=== PATIENT | male | born 1935 | race Caucasian/White ===

== ENCOUNTER → 2016-11-01 | Outpatient (CLI) | payer OTHER ==
[~2016-11-01] VITALS: Ht 182.9 cm; Wt 79.1 kg
[~2016-11-01] MED LIST: ASPIR 8181 M1 PO; GLUCOPHAGE500 MG PO; LIPITOR40 MG PO; PRINIVIL10 MG PO
[2016-11-01 12:45] LABS: POINT-OF-CARE METER ID UU14107333
[2016-11-01 15:29] LABS: POINT-OF-CARE METER ID UU13113819
== END | disposition home or self-care (01) ==
LOC: AMB 11:40
PROVIDERS: Internal Medicine Gastroenterology
PROC: 0DB38ZX Excision of Lower Esophagus, Via Natural or Artificial Opening Endoscopic, Diagnostic (ICD-10-PCS; principal; 2016-11-01)
DX: C15.5 Malignant neoplasm of lower third of esophagus (principal); R63.4 Abnormal weight loss; K21.9 Gastro-esophageal reflux disease without esophagitis; I25.2 Old myocardial infarction; Z87.891 Personal history of nicotine dependence; E11.9 Type 2 diabetes mellitus without complications; Z79.84 Long term (current) use of oral hypoglycemic drugs
CPT/HCPCS: 82948; 88305

== ENCOUNTER → 2016-11-15 | Outpatient (CLI) | payer OTHER ==
[~2016-11-15] VITALS: Ht 182.9 cm; Wt 74.5 kg
[~2016-11-15] MED LIST changes: +ATORVASTATIN CA20 MG PO; +LISINOPRIL10 MG PO
== END | disposition home or self-care (01) ==
LOC: AMB 07:49
PROC: 0D758DZ Dilation of Esophagus with Intraluminal Device, Via Natural or Artificial Opening Endoscopic (ICD-10-PCS; principal; 2016-11-15)
DX: C15.5 Malignant neoplasm of lower third of esophagus (principal); I10 Essential (primary) hypertension; I25.2 Old myocardial infarction; R63.4 Abnormal weight loss; Z87.891 Personal history of nicotine dependence
CPT/HCPCS: 74360; C1757; J0330; J1100; J2405; J3010

== ENCOUNTER → 2017-05-31 | Outpatient (CLI) | payer OTHER ==
[~2017-05-31] VITALS: Ht 182.9 cm; Wt 71.0 kg
[~2017-05-31] MED LIST changes: +CLARITIN10 M3 PO; +COLACE100 MG PO; +COMPAZINE10 MG PO; +DIAZEPAM5 MG PO; +FOLTX TABLET1 EAC1 PO; +GAS-X125 MG PO; +IRON325 M1 PO; +K-DUR20 MEQ PO; +MELATONIN5 M1 PO; +ONDANSETRON HCL8 MG PO; +OSTERA TABLET1 EACH PO; +PREDNISONE2.5 MG PO; +TRAMADOL HCL50 MG PO; +TYLENOL EXTRA500 MG PO
[2017-05-31 17:49] VITALS: BP 127/59
[2017-05-31 20:41] LABS: CHLORIDE 94 MEQ/L (99-109); POTASSIUM 4.5 MEQ/L (3.7-5.4); SODIUM 126 MEQ/L (136-147)
[2017-05-31 20:47] LABS: CREATININE 0.5 MG/DL (0.6-1.3); GFR ESTIMATE (CALCULATED) > 59 mL/min/ (58.99-99999); GLUCOSE 132 mg/dL (70-99); UREA NITROGEN (BUN) 12 mg/dL (9-23)
== END | disposition home or self-care (01) ==
LOC: IVINF 17:30
PROVIDERS: Internal Medicine
DX: E86.0 Dehydration (principal)
CPT/HCPCS: 80048; 96360; 96361; J7030

== ENCOUNTER 2017-06-15 10:16 | Inpatient (IN) | payer OTHER ==
[~2017-06-15] VITALS: Ht 182.9 cm; Wt 69.1 kg
[~2017-06-15 10:16] MED LIST changes: -FOLTX TABLET1 EAC1 PO; -MELATONIN5 M1 PO; +MELATONIN5 M4 PO; -OSTERA TABLET1 EACH PO; +VITAMIN B-1250 MC3 PO; +VITAMIN D2000 UNIT PO
[2017-06-15 11:09] LABS: BASOPHIL (%) 0.1 % (0-1); EOSINOPHIL (%) 0 % (0-5); HEMATOCRIT 18.4 % (38.0-50.0); IMMATURE GRANULOCYTE (%) 2.2 % (0.0-0.7); LYMPHOCYTE (%) 4.7 % (15-42); MCH 29.6 PG (29.0-34.0); MCHC 32.6 G/DL (30.0-36.0); MCV 90.6 FL (86-99); MONOCYTE (%) 7.6 % (3-12); MONOCYTE COUNT 1.7 K/uL (0-0.8); NEUTROPHIL (%) 85.4 % (45-76); NEUTROPHIL COUNT 18.9 K/uL (1.8-6.4); PLATELET COUNT 322 K/uL (156-360); RBC DIS.WIDTH-CV 14.3 % (11.8-14.6); WHITE BLOOD COUNT 22.1 K/uL (4.1-10.2)
[2017-06-15 11:10] LABS: INTER. NORMALIZED RATIO 1.2
[2017-06-15 11:10] LABS: RED BLOOD COUNT 2.03 M/uL (4.00-5.50)
[2017-06-15 11:12] LABS: PTT 26.9 SEC (25-37)
[2017-06-15 11:16] LABS: ALBUMIN 2.9 g/dL (3.2-4.8); CHLORIDE 90 mEq/L (99-109); POTASSIUM 4.9 mEq/L (3.7-5.4); SODIUM 124 mEq/L (136-147)
[2017-06-15 11:17] LABS: MAGNESIUM 1.7 mg/dL (1.3-2.7)
[2017-06-15 11:19] LABS: GLUCOSE 216 mg/dL (70-99); TOTAL PROTEIN 5.3 g/dL (6.4-8.3)
[2017-06-15 11:21] LABS: TOTAL BILIRUBIN 0.2 mg/dL (0.0-1.0)
[2017-06-15 11:22] LABS: ALKALINE PHOSPHATASE 105 IU/L (3-129)
[2017-06-15 11:23] LABS: GFR ESTIMATE (CALCULATED) > 59 mL/min/ (58.99-99999)
[2017-06-15 11:24] LABS: AST (GOT) 45 IU/L (2-34); UREA NITROGEN (BUN) 46 mg/dL (9-23)
[2017-06-15 11:25] LABS: TROP-I INTERPRETATION NEGATIVE; TROPONIN-I 0.26 ng/mL (0.0-0.30)
[2017-06-15 11:25] LABS: ALT (GPT) 36 IU/L (3-49)
[2017-06-15 12:55] VITALS: BP 121/59
[2017-06-15 13:15] VITALS: BP 108/52
[2017-06-15 14:00] VITALS: BP 84/56
[2017-06-15 14:01] VITALS: BP 84/56
[2017-06-15 16:00] VITALS: BP 106/46
== END 2017-06-15 21:40 | DRG 375 ==
LOC: EME 10:16 → 4WEST 11:35 → EDOF 11:35 → 4WEST 11:35 → ENRESERV 11:38 → EDOF 11:48 → ENRESERV 12:01 → 4WEST 12:38 → ENRESERV 17:18 → CANRESERV 18:20 → 4WEST 21:40
PROVIDERS: Emergency Medicine
DX: C15.9 Malignant neoplasm of esophagus, unspecified (principal); K92.0 Hematemesis; K92.1 Melena; D62 Acute posthemorrhagic anemia; Z53.1 Procedure and treatment not carried out because of patient's decision for reasons of belief and group pressure; I95.9 Hypotension, unspecified; N17.9 Acute kidney failure, unspecified; E87.1 Hypo-osmolality and hyponatremia; I46.9 Cardiac arrest, cause unspecified; G89.3 Neoplasm related pain (acute) (chronic); C79.51 Secondary malignant neoplasm of bone; C78.7 Secondary malignant neoplasm of liver and intrahepatic bile duct; K22.2 Esophageal obstruction; R13.14 Dysphagia, pharyngoesophageal phase; R64 Cachexia; I10 Essential (primary) hypertension; Z51.5 Encounter for palliative care; Z66 Do not resuscitate; I25.2 Old myocardial infarction; Z87.891 Personal history of nicotine dependence; Z68.20 Body mass index [BMI] 20.0-20.9, adult
CPT/HCPCS: 71045; 80053; 81003; 83605; 83735; 83880; 84484; 85025; 85610; 85730; 87641; 93005; 99281; 99284; C9113; J2270; J7030; J7040; S0028